=== PATIENT | male | born 1980 | race Caucasian/White ===

== ENCOUNTER 2018-07-17 11:19 | Emergency (ER) | payer MEDICAID, OTHER ==
[~2018-07-17] VITALS: Ht 188 cm; Wt 97.0 kg
[~2018-07-17 11:19] MED LIST: METH4TAB3 PO
[2018-07-17 11:23] VITALS: BP 131/86
[2018-07-17] MEDS ORDERED: CefTRIAXone 250MG IM Kit w/LIDOcaine IM ONE (12:30)
[2018-07-17] MEDS ORDERED: azithromycin 250mg tablet PO ONE (12:30)
== END 2018-07-17 12:50 | disposition home or self-care (01) ==
LOC: ER 11:19
DX: Z20.2 Contact with and (suspected) exposure to infections with a predominantly sexual mode of transmission (principal); F12.90 Cannabis use, unspecified, uncomplicated; Z79.899 Other long term (current) drug therapy; Z87.891 Personal history of nicotine dependence
CPT/HCPCS: 96372; 99283; J0696

== ENCOUNTER 2019-01-25 22:18 | Emergency (ER) | payer SELFPAY ==
[~2019-01-25] VITALS: Ht 185.4 cm; Wt 90.9 kg
[2019-01-25 22:21] VITALS: BP 150/79
[2019-01-25] MEDS ORDERED: IBUP-1984 PO (23:25)
== END 2019-01-25 23:33 | disposition home or self-care (01) ==
LOC: ER 22:19
DX: M79.672 Pain in left foot (principal); F12.90 Cannabis use, unspecified, uncomplicated; F10.99 Alcohol use, unspecified with unspecified alcohol-induced disorder; Z79.899 Other long term (current) drug therapy; Y90.9 Presence of alcohol in blood, level not specified
CPT/HCPCS: 73630; 99283